=== PATIENT | female | born 1985 | race Caucasian/White ===

== ENCOUNTER 2016-04-30 16:03 | Emergency (ER) | payer BC, OTHER ==
[2016-04-30 16:25] VITALS: BP 152/96
[2016-05-01 12:09] LABS: Hematocrit 45 % (35-47); Mean Corpuscular HGB Conc 33 g/dl (31-36); Mean Corpuscular Hemoglobin 31 pg (27-31); Mean Corpuscular Volume 92 fL (80-97); Mean Platelet Volume 9 um3 (7.4-10.4); Red Blood Count 4.86 10^6/ul (4.0-5.4); Red Cell Distribution Width 12 % (10.5-15); White Blood Count 8.8 10^3/ul (3.5-10.8)
[2016-05-01 12:30] LABS: TSH (Thyroid Stimulating Horm) 0.63 mcIU/mL (0.34-5.60)
[2016-05-01 13:02] LABS: BUN/Creatinine Ratio 16.2 (8-20); Calcium 10.2 mg/dL (8.6-10.3); EGFR African American 129.8 (>60); EGFR Non-African American 100.9 (>60); Potassium 4.1 mmol/L (3.5-5.0)
--- NOTE | 2016-06-14 14:24 | UC ---
Marino Alvarez Anna, scribed for Radha Jackson MD on 04/30/16 at 1710 . Headache HPI - HPI Summary HPI Summary: Patient is a 30 y/o female coming to [facility] presenting with gradual onset of a intermittent headache that began one week ago. She describes the headache as pressure behind her eyes. Per triage notes the patient describes the severity of the pain as 8/10. The patient reports she has additionally felt intermittent flutters in her chest, tremors in her hands and arms, muscle weakness, loss of balance, and dizziness that began 7 weeks ago. She has had sinus infections before but does not feel more congested than normal. The symptoms are exacerbated by physical movement. Her dizziness is also exacerbated when looking at rapid movement. She changed medications in December but not since then. She came in today because of the severity of the headache. She usually drinks caffeine but has not been drinking much since the symptoms began. - History Of Current Complaint Chief Complaint: UCHeadache Stated Complaint: HEADACHE Time Seen by Provider: 04/30/16 16:55 Hx Obtained From: Patient Hx Last Menstrual Period: 04/13/16 Onset/Duration: Lasting Weeks, Still Present Pain Intensity: 8 Pain Scale Used: 0-10 Numeric - Allergies/Home Medications Allergies/Adverse Reactions: Allergies Allergy/AdvReac Type Severity Reaction Status Date / Time No Known Allergies Allergy Verified 06/02/14 14:20 PMH/Surg Hx/FS Hx/Imm Hx Endocrine History Of: Reports: Thyroid Disease Denies: Diabetes Cardiovascular History Of: Denies: Cardiac Disorders, Hypertension Respiratory History Of: Denies: COPD, Asthma GI/ History Of: Denies: Ulcer - Surgical History Surgical History: Yes Surgery Procedure, Year, and Place: 1997 RIGHT THYROIDECTOMY - Family History Known Family History: Positive: Diabetes, Other - Denies FHx of headaches, muscle weakness, dizziness - Social History Occupation: Employed Part-time Lives: With Family Alcohol Use: Weekly Substance Use Type: None Smoking Status (MU): Current Every Day Smoker Type: Cigarettes Amount Used/How Often: 3- 1/2/ PPD Length of Time of Smoking/Using Tobacco: 8 YEARS Have You Smoked in the Last Year: Yes Review of Systems Cardiovascular: Palpitations Neurological: Headache, Weakness, Other - dizziness, tremors, loss of balance All Other Systems Reviewed And Are Negative: Yes Physical Exam Triage Information Reviewed: Yes Appearance: Well-Nourished Vital Signs: Initial Vital Signs Temp 98.1 F 04/30/16 16:19 Pulse 102 04/30/16 16:19 Resp 18 04/30/16 16:19 BP 152/96 04/30/16 16:19 Pulse Ox 100 04/30/16 16:19 Vital Signs Reviewed: Yes Eye Exam: Normal ENT Exam: Normal Neck exam: Normal - No adenopathy appreciated Respiratory Exam: Normal - No dyspnea, no tachypnea, normal respiratory rate. Chest non-tender, lungs clear, normal breath sounds, no respiratory distress, no accessory muscle use. Cardiovascular Exam: Normal - RRR, No murmur, pulses normal - sitting up, brisk capillary refill. Abdomen Description: Positive: Nontender, No Organomegaly, Soft Bowel Sounds: Positive: Present Musculoskeletal Exam: Normal Musculoskeletal: Positive: Strength Intact Neurological Exam: Normal - Nonfocal, grossly intact Psychological Exam: Normal - Conversing easily and appropriately Skin Exam: Normal - no visible or reported rash Diagnostics - EKG Cardiac Rate: NL - 87 bpm; LAE, consider biatrial enlargement Headache Course/Dx - Course Course Of Treatment: No new problems in CCC. Considered below differential diagnoses. Not whol, but encourage close f/u pcp. Questions answered to the best of my ability. See avs re ancillaries. - Differential Dx/Diagnosis Provider Diagnoses: Headache Discharge - Discharge Plan Condition: Stable Disposition: HOME Prescriptions: Amoxicillin (*) 875 mg PO BID #20 tab Patient Education Materials: Sinusitis (ED), Lightheadedness (ED), Dizziness ( ED) Forms: *Work Release Referrals: Joe Vegas MD [Primary Care Provider] - Additional Instructions: Please follow up with your primary care provider. Seek medical attention for worsening problems in the meantime. Follow up with Dr. Vegas - next week if possible. Call tomorrow to schedule an appointment. Seek medical attention for worse or new problems in the meantime. Tests today: EKG Blood tests - see attached. The documentation as recorded by the Marino cain Anna accurately reflects the service I personally performed and the decisions made by me, Radha Jackson MD.
== END 2016-04-30 17:55 | disposition home or self-care (01) ==
LOC: UCEAST 16:03
DX: R51 Headache (principal); R53.1 Weakness; R42 Dizziness and giddiness; R25.1 Tremor, unspecified; F17.210 Nicotine dependence, cigarettes, uncomplicated
CPT/HCPCS: 36415; 80048; 83735; 84443; 85025; 93005; 99212; G0463

== ENCOUNTER 2016-05-14 09:56 | Emergency (ER) | payer BC ==
[2016-05-14 16:37] LABS: ALT 15 U/L (7-52); AST 18 U/L (13-39); Albumin 4.7 g/dL (3.2-5.2); Alkaline Phosphatase 84 U/L (34-104); Anion Gap 5 mmol/L (2-11); BUN/Creatinine Ratio 14.3 (8-20); Blood Urea Nitrogen 11 mg/dL (6-24); CO2 Carbon Dioxide 29 mmol/L (22-32); Calcium 9.6 mg/dL (8.6-10.3); Chloride 101 mmol/L (101-111); EGFR African American 112.4 (>60); EGFR Non-African American 87.4 (>60); Globulin 2.9 g/dL (2-4); Glucose 84 mg/dL (70-100); Potassium 3.6 mmol/L (3.5-5.0); Sodium 135 mmol/L (133-145); Total Protein 7.6 g/dL (6.4-8.9)
[2016-05-14 16:42] LABS: Hematocrit 42 % (35-47); Hemoglobin 14.2 g/dl (12.0-16.0); Mean Corpuscular HGB Conc 34 g/dl (31-36); Mean Corpuscular Hemoglobin 31 pg (27-31); Mean Corpuscular Volume 92 fL (80-97); Mean Platelet Volume 8 um3 (7.4-10.4); Red Blood Count 4.57 10^6/ul (4.0-5.4); Red Cell Distribution Width 12 % (10.5-15); White Blood Count 9.2 10^3/ul (3.5-10.8)
--- NOTE | 2016-05-14 16:54 | RAD ---
INDICATION: Headaches. COMPARISON: CT brain November 12, 2013. TECHNIQUE: Noncontrast axial source images were acquired from the skull base to the vertex. FINDINGS: Ventricles/sulci: The ventricles and cisterns are normal in size and configuration for age. Brain parenchyma: There is no focal parenchymal finding, evidence of intracranial mass, or intracranial mass effect. Intracranial hemorrhage:None. Extra-axial spaces: There are no abnormal extra axial fluid collections or evidence of extra-axial mass. Calvarium: There is no calvarial fracture or other calvarial abnormality. Scalp: There is no evidence of scalp or extracalvarial soft tissue abnormality. Paranasal sinuses/mastoid: The paranasal sinuses and mastoid air cells are clear. Other: None. IMPRESSION: NEGATIVE EXAMINATION
[2016-05-14 17:13] LABS: TSH (Thyroid Stimulating Horm) 0.74 mcIU/mL (0.34-5.60)
[2016-05-14 17:14] VITALS: BP 136/91
--- NOTE | 2016-05-14 21:38 | ED ---
Sohail Alvarez Erika, scribed for Tawanda Cuello MD on 05/14/16 at 1714 . Complex/Multi-Sys Presentation - HPI Summary HPI Summary: Patient is a 30-year-old female presenting to the ED with a CC of palpitations. Patient reports that in February 2016, she began to intermittently have palpitations which felt as if her heart was racing. She denies feeling anxious with these episodes. A few weeks later, pt also began experiencing dizziness which was aggravated by moving her head or eyes. This did not necessarily occur at the same time as the palpitations. She also began feeling off-balance, with rigors, decreased dexterity, and generalized muscle weakness. A few weeks later , she also developed a headache behind her eyes, which has been intermittent for the past few weeks. She currently reports she has this headache. Today, pt developed lightheadedness with the headache, so came to the ED. She also believes her BP was elevated this morning - she reports it as 164/117 this morning. She also states some chest pain today, which has not occurred before. Pt denies having palpitations since arrival to the ED. Through the past months, she denies SOB and pedal edema. Pt takes wellbutrin, alprazolam, venlafaxine, and levothyroxine. She reports she has been quitting smoking. Pt has a Mirena IUD. She denies Hx of cardiac disease, though notes FHx cardiac disease. - History Of Current Complaint Chief Complaint: EDDysrhythmPalp Time Seen by Provider: 05/14/16 16:09 Hx Obtained From: Patient Onset/Duration: Gradual Onset, Lasting Weeks, Still Present Timing: Constant Severity Currently: Moderate Associated Signs And Symptoms: Positive: Dizziness, Weakness, Headache - Allergies/Home Medications Allergies/Adverse Reactions: Allergies Allergy/AdvReac Type Severity Reaction Status Date / Time No Known Allergies Allergy Verified 06/02/14 14:20 Home Medications: Home Medications ALPRAZolam TAB* [Xanax TAB*] 0.25 mg PO DAILY PRN 05/14/16 [History Confirmed ] Levothyroxine TAB* [Synthroid TAB*] 125 mcg PO DAILY 05/14/16 [History Confirmed 05/14/16] Venlafaxine CAP (NF) [Effexor CAP (NF)] 150 mg PO BID WITH MEALS 05/14/16 [ History Confirmed 05/14/16] buPROPion SR TAB* [Wellbutrin SR TAB*] 450 mg PO BEDTIME 05/14/16 [History Confirmed 05/14/16] PMH/Surg Hx/FS Hx/Imm Hx Endocrine/Hematology History: Reports: Hx Thyroid Disease Denies: Hx Diabetes Cardiovascular History: Denies: Hx Hypertension Respiratory History: Denies: Hx Asthma, Hx Chronic Obstructive Pulmonary Disease (COPD) GI History: Denies: Hx Ulcer - Cancer History Cancer Type, Location and Year: THYROID - Surgical History Surgery Procedure, Year, and Place: 1997 RIGHT THYROIDECTOMY - Immunization History Date of Tetanus Vaccine: PT STATES UNSURE Date of Influenza Vaccine: NONE Infectious Disease History: No Infectious Disease History: Denies: Hx Clostridium Difficile, Hx Hepatitis, Hx Human Immunodeficiency Virus (HIV), Hx of Known/Suspected MRSA, Hx Shingles, Hx Tuberculosis, Hx Known/ Suspected VRE, Hx Known/Suspected VRSA, History Other Infectious Disease, Traveled Outside the [place] in Last 30 Days - Family History Known Family History: Positive: Cardiac Disease - Social History Alcohol Use: Occasionally Substance Use Type: Reports: None Hx Tobacco Use: Yes Smoking Status (MU): Current Every Day Smoker Type: Cigarettes Amount Used/How Often: 3- 1/2/ PPD Length of Time of Smoking/Using Tobacco: 8 YEARS Have You Smoked in the Last Year: Yes Review of Systems Constitutional: Other - rigors Positive: Palpitations, Chest Pain Negative: Shortness Of Breath Negative: Edema Neurological: Other - dizziness,off-balance Positive: Headache, Weakness - generalized, and states decreased dexterity Negative: Anxious All Other Systems Reviewed And Are Negative: Yes Physical Exam - Summary Physical Exam Summary: Constitutional: Comfortable, pleasant, alert HEENT: moist mucosa Neck: Soft, supple, no adenopathy, no edema. No thyroid nodules Heart: S1, S2, RRR, no murmurs, rubs, or gallops. While in the room for 10 minutes, no events on the monitor nor palpitations Lungs: clear, breathing comfortably, no wheezes, no rales Abdomen: Soft, flat, non-tender. Extremities: No edema, calves non-tender Neurological: A&Ox3. CN III-XII Intact. Finger to nose intact. Negative pronator drift. Psychological: logical, coherent Triage Information Reviewed: Yes Vital Signs On Initial Exam: Initial Vitals Temp Pulse Resp BP Pulse Ox 97.8 F 95 16 145/95 97 05/14/16 10:04 05/14/16 10:04 05/14/16 10:04 05/14/16 10:04 05/14/16 10:04 Vital Signs Reviewed: Yes - Morton Coma Scale Coma Scale Total: 15 Diagnostics - Vital Signs Vital Signs Temp Pulse Resp BP Pulse Ox 05/14/16 16:00 85 20 137/90 100 05/14/16 15:57 97 10 143/97 97 05/14/16 10:04 97.8 F 95 16 145/95 97 - Laboratory Lab Results: Lab Results 05/14/16 05/14/16 Range/Units 16:00 16:12 WBC 9.2 (3.5-10.8) 10^3/ul RBC 4.57 (4.0-5.4) 10^6/ul Hgb 14.2 (12.0-16.0) g/dl Hct 42 (35-47) % MCV 92 (80-97) fL MCH 31 (27-31) pg MCHC 34 (31-36) g/dl RDW 12 (10.5-15) % Plt Count 315 (150-450) 10^3/ul MPV 8 (7.4-10.4) um3 Neut % (Auto) 56.9 (38-83) % Lymph % (Auto) 32.3 (25-47) % Grainger % (Auto) 5.2 (1-9) % Eos % (Auto) 5.1 (0-6) % Baso % (Auto) 0.5 (0-2) % Absolute Neuts (auto) 5.3 (1.5-7.7) 10^3/ul Absolute Lymphs (auto) 3.0 (1.0-4.8) 10^3/ul Absolute Monos (auto) 0.5 (0-0.8) 10^3/ul Absolute Eos (auto) 0.5 (0-0.6) 10^3/ul Absolute Basos (auto) 0 (0-0.2) 10^3/ul Absolute Nucleated RBC 0 10^3/ul Nucleated RBC % 0 Sodium 135 (133-145) mmol/L Potassium 3.6 (3.5-5.0) mmol/L Chloride 101 (101-111) mmol/L Carbon Dioxide 29 (22-32) mmol/L Anion Gap 5 (2-11) mmol/L BUN 11 (6-24) mg/dL Creatinine 0.77 (0.51-0.95) mg/dL Est GFR ( Amer) 112.4 (>60) Est GFR (Non-Af Amer) 87.4 (>60) BUN/Creatinine Ratio 14.3 (8-20) Glucose 84 (70-100) mg/dL Calcium 9.6 (8.6-10.3) mg/dL Total Bilirubin 0.50 (0.2-1.0) mg/dL AST 18 (13-39) U/L ALT 15 (7-52) U/L Alkaline Phosphatase 84 (34-104) U/L Total Protein 7.6 (6.4-8.9) g/dL Albumin 4.7 (3.2-5.2) g/dL Globulin 2.9 (2-4) g/dL Albumin/Globulin Ratio 1.6 (1-3) TSH 0.74 (0.34-5.60) mcIU/mL Beta HCG, Quant < 0.60 mIU/mL Result Diagrams: 05/14/16 16:00 05/14/16 16:12 Lab Statement: Any lab studies that have been ordered have been reviewed, and results considered in the medical decision making process. - CT CT Brain CT Interpretation Completed By: Radiologist - IMPRESSION: NEGATIVE EXAMINATION - EKG 10:01 Cardiac Rate: NL - 92 bpm EKG Rhythm: Sinus Rhythm EKG Interpretation: No ST changes Re-Evaluation - Re-Evaluation First Eval Re-Evaluation Time: 17:13 Comment: Discussed lab results and plan for follow up with cardiology for possible cardiac event monitor Complex Multi-Symp Course/Dx Assessment/Plan: She presents with headache, episodes of vertigo, and episodes of palpitations, which do not seem to have any obvious relation. She clearly describes imbalance with changes of head position which is consistent with BPV. Her headaches are not new, and have been going on for weeks. Palpitations do not sound concerning but I will send her to cardiology for possible cardiac event monitor. She will also follow up with her PCP. - Diagnoses Provider Diagnoses: Vertigo Discharge - Discharge Plan Condition: Good Disposition: HOME Patient Education Materials: Palpitations (ED), Vertigo (ED), General Headache (ED) Referrals: Yayo Tsang DO [Medical Doctor] - 5 Days Joe Vegas MD [Primary Care Provider] - 5 Days The documentation as recorded by the rajeshibSohail regalado Erika accurately reflects the service I personally performed and the decisions made by me, Tawanda Cuello MD.
== END 2016-05-14 17:22 | disposition home or self-care (01) ==
LOC: ED 09:56
DX: R42 Dizziness and giddiness (principal); R51 Headache; R53.1 Weakness; F17.210 Nicotine dependence, cigarettes, uncomplicated; R00.2 Palpitations; R07.9 Chest pain, unspecified
CPT/HCPCS: 36415; 70450; 80053; 84443; 84702; 85025; 86703; 93005; 99282

== ENCOUNTER → 2016-09-24 09:23 | Day surgery (SDC) | payer BC ==
[~2016-09-24 09:23] MED LIST: ONABOTULINUMTOXINA 200 UNIT ONE
--- NOTE | 2016-10-06 15:15 | OP ---
DATE OF PROCEDURE: 09/24/16 - [facility] DATE OF : 83 SURGEON: Nick Solis MD PROCEDURE: Botox injections following PREEMPT protocol from migraine management. DIAGNOSIS: Migraine. DESCRIPTION OF PROCEDURE: The patient was in the local room in same day surgery and I injected Botox utilizing the PREEMPT protocol for migraines, multiple sites throughout her forehead, temporalis muscles, occiput, and neck. This was done without complications. [id number]/[facility] #: [id number] [facility]ITALYosef
== END | disposition home or self-care (01) ==
LOC: OR 09:23
PROVIDERS: ATTEND Otolaryngology
DX: G43.019 Migraine without aura, intractable, without status migrainosus (principal); J30.9 Allergic rhinitis, unspecified; E03.9 Hypothyroidism, unspecified; F17.210 Nicotine dependence, cigarettes, uncomplicated
CPT/HCPCS: 64616; 95873